=== PATIENT | male | born 1945 | race Caucasian/White ===

== ENCOUNTER 2019-04-12 06:09 | Emergency (ER) | payer MEDICARE, OTHER ==
[2019-04-12] MEDS: Diphtheria,Pertussis(Acell),Tetanus Vaccine 0.5 ML SDV inactive IM ONE (07:28)
--- NOTE | 2019-04-12 08:32 | CT ---
Date of Service: 04/12/19 Clinical Data: Head injury UNENHANCED BRAIN CT: Multislice acquisition through the brain without IV contrast was performed. No priors. There is diffuse cerebral atrophy. There are periventricular lucencies bilaterally consistent with small vessel ischemic change. No masses or mass effect. No intracranial hemorrhage. No evidence of acute or subacute infarct. There is soft tissue swelling of the scalp in the right anterior parietal region. No underlying fractures. No bony abnormalities. IMPRESSION: No acute intracranial abnormalities. [id number] [facility]
--- NOTE | 2019-04-12 08:52 | EDM.PDOC ---
ED HPI GENERAL MEDICAL PROBLEM - General Chief Complaint: Head Injury Stated Complaint: Wound Right forehead Time Seen by Provider: 04/12/19 07:00 Source of Information: Reports: Patient History Limitations: Reports: No Limitations - History of Present Illness INITIAL COMMENTS - FREE TEXT/NARRATIVE: This is a 74yo M here for a fishing trip at [employer] for a group of Veterans. [place]. He got up this am and didn't turn on his lights and slipped and fell grazing his head. He didn't realize that he cut himself until a little later. He denies any loss of consciousness but does take a blood thinner and aspirin but he cannot recall his blood thinner. He denies any prior head injuries. Onset: Sudden Duration: Constant Location: Reports: Head Severity: Moderate Context: Reports: Trauma Associated Symptoms: Reports: No Other Symptoms Right Frontal Head Pain Score (Numeric/FACES): 1 - Related Data Allergies Allergy/AdvReac Type Severity Reaction Status Date / Time Bee sting Allergy Swollen Uncoded 04/12/19 06:35 Eyes Past Medical History HEENT History: Reports: Other (See Below) Other HEENT History: wearing glasses for reading Cardiovascular History: Reports: Heart Failure, High Cholesterol, Hypertension, Pacemaker, Stents, Other (See Below) Other Cardiovascular History: Heart attack about 7 years ago Respiratory History: Reports: None, Sleep Apnea Gastrointestinal History: Reports: None Genitourinary History: Reports: None Musculoskeletal History: Reports: Fracture Endocrine/Metabolic History: Reports: Diabetes, Type II - Past Surgical History HEENT Surgical History: Reports: None GI Surgical History: Reports: None ED ROS GENERAL - Review of Systems Review Of Systems: ROS reveals no pertinent complaints other than HPI. 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 As Tested ED LACERATION/WOUND & ZOE PROC - Laceration/Wound Repair Right Upper Forehead Lac/wound length in cm: 8 Appearance: Superficial Distal NVT: Neuro & Vascular Intact Anesthetic Type: Local Local Anesthesia - Lidocaine (Xylocaine): 1% Plain Local Anesthetic Volume: Other (9) Skin Prep: Chlorhexidine (Hibiciens), Saline, Sterile Drape Saline irrigation (cc's): 250 Exploration/Debridement/Repair: Wound Explored, No Foreign Material Found Closed with: Sutures Suture Size: 4-0 # of Sutures: 14 Suture Type: Interrupted, Simple Tetanus Status Addressed: Yes Complications: No Course - Vital Signs Last Recorded V/S: Last Vital Signs Temp 37.2 C 04/12/19 06:17 Pulse 91 04/12/19 06:17 Resp 18 04/12/19 06:17 BP 153/88 H 04/12/19 06:17 Pulse Ox 98 04/12/19 06:17 - Orders/Labs/Meds Orders: Active Orders 24 hr Category Date Time Status Vaccines to be Administered [RC] PER UNIT ROUTINE Care 04/12/19 08:38 Active Meds: Medications Discontinued Medications Generic Name Dose Route Start Last Admin Trade Name Solitario PRN Reason Stop Dose Admin Diphtheria/Tetanus/Acell Pertussis 0.5 ml 04/12/19 07:28 04/12/19 07:28 Boostrix IM 04/12/19 07:29 0.5 ml .ONCE ONE Administration Departure - Departure Time of Disposition: 07:40 Disposition: Home, Self-Care 01 Condition: Good Clinical Impression: Laceration - Discharge Information Instructions: Concussion, Adult, [id number], Laceration Care, Adult, Easy-to- Read Referrals: PCP,None [Primary Care Provider] - Forms: ED Department Discharge Additional Instructions: Please watch for symptoms of concussion, and rest appropriately. You have been given stitches. Please keep them dry as much as possible and dry your head right away when it does get wet. Your stitches are to be removed in 7-10days. - Problem List & Annotations (1) Laceration SNOMED Code(s): 729830974 Code(s): [id number] - Status: Acute - Problem List Review Problem List Initiated/Reviewed/Updated: Yes - My Orders Last 24 Hours: My Active Orders 04/12/19 08:38 Vaccines to be Administered [RC] PER UNIT ROUTINE - Assessment/Plan Last 24 Hours: My Active Orders 04/12/19 08:38 Vaccines to be Administered [RC] PER UNIT ROUTINE Plan: Counseled on laceration and wound care and management. Discussed monitoring for signs of concussion or brain bleed. Discussed monitoring for infection. Follow up to have sutures removed in 7-10 days. F/u if any concerns or issues.
== END 2019-04-12 07:35 | disposition home or self-care (01) ==
LOC: LB.ED 06:09
DX: S01.01XA Laceration without foreign body of scalp, initial encounter (principal); I11.0 Hypertensive heart disease with heart failure; I50.9 Heart failure, unspecified; E11.59 Type 2 diabetes mellitus with other circulatory complications; Z91.030 Bee allergy status; Z79.82 Long term (current) use of aspirin; Z79.01 Long term (current) use of anticoagulants; Z23 Encounter for immunization; W01.0XXA Fall on same level from slipping, tripping and stumbling without subsequent striking against object, initial encounter
CPT/HCPCS: 12015; 70450; 90471; 90715; 99283-25